=== PATIENT | male | born 1995 | race Caucasian/White ===

== ENCOUNTER 2016-08-08 19:10 | Emergency (ER) | payer BC, OTHER ==
[2016-08-08] MEDS ORDERED: ACETAMINOPHEN 325 MG TAB PO ONE (19:20)
[2016-08-08] MEDS ORDERED: IBUPROFEN 600 MG TAB PO ONE (19:28)
[2016-08-08 19:31] VITALS: RESP 16
--- NOTE | 2016-08-08 19:41 | EDPHY ---
H & P Time Seen by Provider: 08/08/16 19:17 HPI/ROS: This patient reports onset of sore throat 2 days ago with significant increase in severity of the pain yesterday peaking at 9/10. He developed fevers today associated with this and reports associated odynophagia. He has partial relief from Tylenol that she took at noon with no other exacerbating factors. At 10: 00 a.m. today he went to [facility] in [facility] was started on amoxicillin empirically based on his throat examination. No studies were done at that time. His father brought him in for evaluation tonight because he has a fever of 103 at home despite the amoxicillin. He has taken 1 500 mg dose so far. Was prescribed Amoxil 500 three times daily for 10 days. ROS: Positive fevers and chills. No other constitutional complaints HEENT: No nasal congestion. No sinus pain. No ear pain. No dysphonia. Pulmonary: No cough. No shortness of breath Musculoskeletal: Patient reports myalgias in his neck and back as well as mild arthralgias and his elbows. Integumentary: No skin rash. GI: No nausea or vomiting. He 7 point ROS is otherwise negative. Smoking Status: Former smoker Physical Exam: Physical Exam Vital signs are normal. General: No acute distress HEENT: Nose: Clear discharge bilaterally. No sinus tenderness to percussion. Ears: External canals and tympanic membranes are clear with no erythema or abnormal findings bilaterally. Oropharynx: No erythema or exudates. No dysphonia. No drooling or stridor. Oropharynx: Moderate posterior pharyngeal erythema with exudates. No dysphonia. No drooling or stridor. Eyes: Pupils equal and react to light. Extraocular motions are intact. Neck: Supple with no meningismus. Mild anterior cervical lymphadenopathy Lungs: Clear to auscultation bilaterally with no rales, rhonchi or wheeze. No respiratory distress. Cardiac: Borderline tachycardia with no murmur gallop or rub. Skin: No rash or pallor. Neuro: Alert with no focal deficits noted. Initial differential diagnosis: Strep tonsillitis versus viral tonsillitis Constitutional: Initial Vital Signs Temperature (C) 39.4 C H 08/08/16 19:26 Heart Rate 103 H 08/08/16 19:26 Respiratory Rate 16 08/08/16 19:26 Blood Pressure 128/70 H 08/08/16 19:26 O2 Sat (%) 95 08/08/16 19:26 O2 Delivery Mode Room Air Allergies/Adverse Reactions: cephalexin [Cephalexin] Allergy (Verified 08/08/16 19:25) Home Medications: Medication Instructions Recorded Amoxicillin Trihydrate 500 mg PO Q12H 10 Days 02/04/14 [Amoxicillin] Acetaminophen [Acetaminophen ER] 08/08/16 IBUPROFEN [MOTRIN] 08/08/16 MDM/Departure - MDM Medications Given: Discontinued Medications Acetaminophen (Tylenol) 975 mg PO EDNOW ONE Stop: 08/08/16 19:21 Last Admin: 08/08/16 19:39 Dose: 975 mg Ibuprofen (Motrin) 600 mg PO EDNOW ONE Stop: 08/08/16 19:29 Last Admin: 08/08/16 19:40 Dose: 600 mg ED Course/Re-evaluation: Ibuprofen Tylenol with some defervesced since. I counseled the patient regarding strep pharyngitis. Will provide MD exclusion for analgesia in addition to the ibuprofen Tylenol and counseled regarding taking time off for work in school to prevent spreading the strep. Discussion: Patient has significant fever but no clinical evidence concerning for [employer] infection or other complicating factors. He still tolerating good p.o. intake and appears clinically well despite this pharyngitis. - Depart Disposition: Home, Routine, Self-Care Clinical Impression: Strep pharyngitis Condition: Good Instructions: Strep Throat (ED) Additional Instructions: Diagnosis: 1. Strep pharyngitis Plan: Ibuprofen-600 mg for 6 hours and Tylenol 1000 mg every 6 hours as needed for pain and fevers. Continue Amoxil antibiotic MDX solution-rinse gargle spit as needed for pain No work or school for the next 2 days. Return for any significant worsening despite the treatment plan Stand Alone Forms: School Excuse, Work Excuse Referrals: NONE *PRIMARY CARE P,. [Primary Care Provider] - As per Instructions
[2016-08-08 20:14] VITALS: BP 122/70; PULSE 100; TEMP 102.5; O2SAT 96
== END 2016-08-08 20:07 | disposition home or self-care (01) ==
LOC: CED 19:10
DX: J02.0 Streptococcal pharyngitis (principal); Z87.891 Personal history of nicotine dependence
CPT/HCPCS: 87880-PO